=== PATIENT | male | born 1995 | race Two or more races ===

== ENCOUNTER 2019-05-31 21:23 | Inpatient (IN) | payer OTHER ==
[~2019-05-31] VITALS: Ht 177.8 cm; Wt 115.3 kg
[2019-05-31 22:05] LABS: Basophils # (auto) 0.1 uL; Eosinophils # (auto) 0.1 uL; Eosinophils % (auto) 1.8 % (0.0-7.0); Hematocrit 48.7 % (41.0-53.0); Hemoglobin 16.7 g/dL (13.5-17.5); Lymphocytes # (auto) 1.9 uL; Lymphocytes % (auto) 27.2 % (10.0-50.0); Mean Corpuscular Hemoglobin 29.7 pg (28.0-32.0); Mean Corpuscular Hgb Conc. 34.3 g/dL (32.0-36.0); Mean Corpuscular Volume 86.5 fL (80.0-100.0); Monocytes # (auto) 0.5 uL; Monocytes % (auto) 7.2 % (0.0-12.0); Neutrophils # (auto) 4.4 uL; Neutrophils % (auto) 62.8 % (37.0-80.0); Nucleated Red Blood Cells % 0.1 %; Platelet Count (auto) 204 10^3/uL (140-450); Red Blood Cells 5.63 10^6/uL (4.5-5.90); Red Cell Distribution Width 12.9 % (11.8-14.3); White Blood Cell 7.1 10^3/uL (4.4-10.8)
[2019-05-31 22:24] LABS: Albumin 4.3 g/dL (3.4-5.0); Anion Gap 6 (5-15); Blood Urea Nitrogen 11 mg/dL (7-18); Carbon Dioxide 26 mmol/L (21-32); Chloride 107 mmol/L (98-107); Glucose 91 mg/dL (74-106); Potassium 3.7 mmol/L (3.5-5.1); Sodium 139 mmol/L (136-145)
[2019-05-31 22:30] LABS: Alanine Aminotransferase 89 U/L (16-61); Alkaline Phosphatase 103 U/L (45-117); Aspartate Aminotransferase 53 U/L (15-37); BUN/Creatinine Ratio 14.9; Bilirubin, Total 0.5 mg/dL (0.2-1.0); GFR African American 164 mL/min; GFR Non-African American 136 mL/min; Total Protein 8.2 g/dL (6.4-8.2)
[2019-06-01] MEDS ORDERED: traMADol HCL 50 MG TAB PO PRN (01:45)
--- NOTE | 2019-06-01 03:56 | NUR ---
Telemetry admit from [facility] admitted to Telemetry unit after no SBAR was received. Patient oriented to NETTIE MUNOZ RN primary RN, unit, room, bed, and unit policies regarding patient care and visiting hours. Patient now on continuous telemetry monitoring, tele box # [id number] and telemetry reading on arrival to unit is NSR: heart rate 71 bpm. Patient weighed by bedscale and encouraged to call if they need something. All questions and concerns addressed, patient verbalized understanding.
[2019-06-01 04:53] VITALS: BP 139/96
--- NOTE | 2019-06-01 08:00 | NUR ---
OPENING NOTE PATIENT IN BED LOW LOCK POSITION, CALL LIGHT IN REACH. GUARDS AT BEDSIDE. NO S/S OF DISTRESS. DENIES CHEST PAIN AT THIS TIME. WILL CONTINUE CARE.
[2019-06-01 09:00] VITALS: BP 133/83
[2019-06-01] MEDS ORDERED: ASPirin 81 mg TAB PO SCH (10:00)
[2019-06-01] MEDS ORDERED: PANTOPRAZOLE 40 MG TAB PO SCH (10:00)
--- NOTE | 2019-06-01 11:21 | NUR ---
UPDATED JAIL- SPOKE WITH MAURICIO PASSWORD VERIFIED WITH CHARGE NURSE. ALL QUESTIONS AND CONCERNS ADDRESSED.WILL CONTINUE CARE.
--- NOTE | 2019-06-01 11:55 | NUR ---
PATIENT STATING HE IS HAVING CHEST TIGHTNESS VITALS TAKEN, SEE INTERVENTIONS. EKG DONE AND PLACED IN CHART. PATIENT STATES TIGHTNESS LASTED 1-2 MINUTES BUT HAS SUBSIDED AT THIS TIME. PATIENT ON CONTINUOUS TELEMETRY. WILL CONTINUE CARE.
[2019-06-01 12:00] VITALS: BP 151/85
--- NOTE | 2019-06-01 12:29 | NUR ---
UPDATED [facility] ON PATIENT STATUS PASSWORD PROVIDED. SPOKE WITH SHERYL. ALL QUESTIONS AND CONCERNS ADDRESSED. WILL CONTINUE CARE.
[2019-06-01] MEDS ORDERED: PANT40T PO (13:30)
[2019-06-01 14:38] VITALS: BP 151/85
--- NOTE | 2019-06-01 15:12 | NUR ---
Discharge instructions given as ordered. All questions and concerns addressed. Patient verbalized understanding. IV removed with catheter intact, pressure dressing applied. Telemetry unit returned to ICU. Patient discharged to guards with all personal belongings. No distress noted at time of departure.
== END 2019-06-01 15:15 | DRG 313 ==
LOC: EDBD 21:23 → EEVIPCON 21:28 → ER 21:28 → TELE 21:29 → TELE-WESTW 06-01 04:21
PROVIDERS: ADMIT Internal Medicine; ATTEND Internal Medicine
DX: R07.89 Other chest pain (principal); K21.9 Gastro-esophageal reflux disease without esophagitis; Z83.3 Family history of diabetes mellitus
CPT/HCPCS: 36415; 70450; 71045; 80053; 84484; 85025; 93005; G0378

== ENCOUNTER 2019-07-15 20:25 | Emergency (ER) | payer OTHER ==
[~2019-07-15] VITALS: Ht 177.8 cm; Wt 117.9 kg
[~2019-07-15 20:25] MED LIST: PANT40T PO
[2019-07-15 22:31] LABS: Basophils # (auto) 0.1 uL; Basophils % (auto) 0.8 % (0.0-2.0); Eosinophils # (auto) 0.1 uL; Eosinophils % (auto) 1.4 % (0.0-7.0); Hematocrit 48.6 % (41.0-53.0); Hemoglobin 17.1 g/dL (13.5-17.5); Lymphocytes # (auto) 2.3 uL; Lymphocytes % (auto) 26.2 % (10.0-50.0); Mean Corpuscular Hemoglobin 30.3 pg (28.0-32.0); Mean Corpuscular Hgb Conc. 35.3 g/dL (32.0-36.0); Monocytes # (auto) 0.5 uL; Monocytes % (auto) 6.3 % (0.0-12.0); Neutrophils # (auto) 5.6 uL; Neutrophils % (auto) 65.3 % (37.0-80.0); Nucleated Red Blood Cells % 0.2 %; Platelet Count (auto) 218 10^3/uL (140-450); Red Blood Cells 5.65 10^6/uL (4.5-5.90); Red Cell Distribution Width 12.8 % (11.8-14.3); White Blood Cell 8.6 10^3/uL (4.4-10.8)
[2019-07-15 22:40] VITALS: BP 137/92
[2019-07-15 22:41] LABS: INR 0.96 (0.9-1.15); Partial Thromboplastin Time 28.5 sec (23.64-32.05)
[2019-07-15 22:46] LABS: Alanine Aminotransferase 72 U/L (16-61); Albumin 4.2 g/dL (3.4-5.0); Amylase 52 U/L (25-115); Anion Gap 8 (5-15); Aspartate Aminotransferase 32 U/L (15-37); BUN/Creatinine Ratio 12.8; Blood Urea Nitrogen 10 mg/dL (7-18); Carbon Dioxide 25 mmol/L (21-32); Chloride 105 mmol/L (98-107); GFR African American 155 mL/min; GFR Non-African American 128 mL/min; Glucose 95 mg/dL (74-106); Lipase 88 U/L (73-393); Magnesium 2.2 mg/dL (1.6-2.6); Potassium 3.6 mmol/L (3.5-5.1); Sodium 138 mmol/L (136-145)
[2019-07-15 22:52] LABS: Alkaline Phosphatase 110 U/L (45-117); Bilirubin, Total 0.8 mg/dL (0.2-1.0); Total Protein 8.3 g/dL (6.4-8.2)
== END 2019-07-16 00:07 | disposition home or self-care (01) ==
LOC: EDBD 20:25 → EEVIPCON 20:27 → ER 20:27
DX: K21.9 Gastro-esophageal reflux disease without esophagitis (principal); R07.89 Other chest pain
CPT/HCPCS: 36415; 71045; 80053; 82150; 83690; 83735; 83880; 84443; 84484; 85025; 85379; 85610; 85730; 93005